=== PATIENT | male | born 2000 | race African-American/Black ===

== ENCOUNTER 2022-05-01 22:51 | Emergency (ER) | payer OTHER ==
--- NOTE | 2022-05-01 22:52 | ED Physician Documentation ---
PD HPI HEENT - Stated complaint Stated Complaint: EAR ACHE/SORE THROAT - History obtained from History obtained from: Patient - Additional information Additional information: HPI from patient. Patient complains of 1 week of chest and nasal congestion with intermittent mild dyspnea. He complains of sore throat with odynophagia as well as left ear pain. He has not taken his temperature at home, but has subjectively felt febrile with chills and sweats. He was evaluated at [facility] several days ago, and, per patient, was tested for COVID and influenza with the results of these tests both being negative. Review of Systems Constitutional: reports: Chills, Sweats Ears: reports: Ear pain Throat: reports: Sore throat Respiratory: reports: Dyspnea. denies: Cough PD PAST MEDICAL HISTORY - Past Medical History Past Medical History: No - Present Medications Home Medications: Ambulatory Orders Medication Instructions Recorded Confirmed Amox/Clav 875/125 [Augmentin 1 tablet PO Q12H 10 Days #20 tablet 05/01/22 875/125 Tab] - Allergies Allergies/Adverse Reactions: Allergies Allergy/AdvReac Type Severity Reaction Status Date / Time orange Allergy Itching Verified 05/01/22 22:55 PD ED PE NORMAL - Vitals Vital signs reviewed: Yes - General General: Alert and oriented X 3, No acute distress, Well developed/nourished - HEENT HEENT: Moist mucous membranes, Other (posterior oropharyngeal erythema with L>R swelling, trace exudate) - Neck Neck: Supple, no meningeal sign - Respiratory Respiratory: No respiratory distress, Clear bilaterally PD ED PE EXPANDED - HEENT HEENT: L TM red, L TM loss of landmarks Results - Vitals Vitals: Vital Signs - 24 hr 05/01/22 22:56 Temperature 37.2 C Heart Rate 89 Respiratory 16 Rate Blood Pressure 175/91 H O2 Saturation 98 Oxygen O2 Source Room air - Labs Labs: Laboratory Tests 05/01/22 23:08 Group A Strep Rapid POSITIVE H PD Medical Decision Making - ED course Complexity details: considered differential, d/w patient ED course: Patient has left otitis media on exam, with uniformly erythematous tympanic membrane on the left with loss of landmarks. He also is positive for strep on throat swab. He is given a one-time dose of Decadron 10 mg p.o. in the emergency department as well as 875 mg of Augmentin p.o., with a prescription for a 10-day course of twice daily Augmentin electronically submitted to [facility] pharmacy in [place]. Departure - Departure Disposition: 01 Home, Self Care Clinical Impression: Pharyngitis, Otitis media Condition: Good Instructions: ED Otitis Media Acute Adult, ED Strep Pharyngitis Poss Follow-Up: KAM[facility] Alvarez [Provider Group] Prescriptions: Amox/Clav 875/125 [Augmentin 875/125 Tab] 1 tablet PO Q12H 10 Days #20 tablet Comments: You are given the first dose of an antibiotic (Augmentin) in the emergency department for the throat and left ear infection. You are also given a one-time dose of steroid (Decadron); the steroid has a strong anti-inflammatory effect and, over the course of several hours, often will help reduce the swelling associated with throat infection which, in turn, can help reduce the pain. A full course of the antibiotic prescription has been electronically submitted to the [facility] pharmacy in [place]. Forms: Activity restrictions Discharge Date/Time: 05/01/22 23:27
[2022-05-01 23:05] VITALS: BP 175/91
[2022-05-01] MEDS ORDERED: AMOX/CLAV 875 MG/125 MG TABLET PO STA (23:16)
[2022-05-01] MEDS ORDERED: DEXAMETHASONE 10 MG/ML VIAL PO STA (23:17)
[2022-05-01] MEDS ORDERED: CHERRY SYRUP 10 ML UDC PO ONE (23:17)
[2022-05-01 23:22] LABS: RAPID STREP SCREEN POSITIVE (Negative)
== END 2022-05-01 23:27 | disposition home or self-care (01) ==
LOC: ED 22:51
DX: J02.0 Streptococcal pharyngitis (principal); H66.92 Otitis media, unspecified, left ear
CPT/HCPCS: 87430; 99283; A9270